=== PATIENT | female | born 1970 | race Caucasian/White ===

== ENCOUNTER → 2017-03-15 | Outpatient (CLI) | payer BC ==
[~2017-03-15] MED LIST: BIOT25008; CETI-269 PO; CYCL-375 PO; FISH1CAP28; FLUT16SP EA NOSTRIL; IBUP-1547 PO
== END ==
LOC: WC.BC 08:01
DX: Z12.31 Encounter for screening mammogram for malignant neoplasm of breast (principal); N64.59 Other signs and symptoms in breast; Z80.3 Family history of malignant neoplasm of breast
CPT/HCPCS: 77063; G0202